=== PATIENT | female | born 1945 | race Caucasian/White ===

== ENCOUNTER 2016-07-28 18:20 | Inpatient (IN) | payer OTHER ==
[~2016-07-28] VITALS: Ht 167.6 cm; Wt 86.2 kg
[2016-07-28 20:00] VITALS: BP 138/66
[2016-07-28] MEDS ORDERED: LORAZEPAM 0.5 MG TABLET PO PRN (21:00)
[2016-07-28] MEDS ORDERED: ACETAMINOPHEN 325 MG TABLET PO PRN (21:00)
[2016-07-28] MEDS ORDERED: MAGNESIUM HYDROXIDE 30 ML UDC PO PRN (21:00)
[2016-07-28] MEDS ORDERED: MAG HYDROX/AL HYDROX/SIMETH 30 ML UDC PO PRN (21:00)
[2016-07-28] MEDS ORDERED: CITA20TA19 PO (21:24)
[2016-07-28] MEDS ORDERED: AMLO10TA2 PO (21:24)
[2016-07-29 07:51] LABS: BASOPHILS % (AUTO) 0.4 % (0.0-2.0); DIFF TOTAL % 100 %; EOSINOPHILS % (AUTO) 0.3 % (0.0-6.0); HEMATOCRIT 36 % (33-45); HEMOGLOBIN 11.9 g/dL (11.5-14.8); LYMPHOCYTES # (AUTO) 1.3 /CMM (0.8-4.8); LYMPHOCYTES % (AUTO) 15.2 % (20.0-44.0); MEAN CORPUSCULAR HEMOGLOBIN 32 PG (26.0-33.0); MEAN CORPUSCULAR HGB CONC 33 g/dl (31.0-36.0); MEAN CORPUSCULAR VOLUME 97 fL (82-100); MONOCYTES # (AUTO) 0.5 /CMM (0.1-1.30); NEUTROPHILS # (AUTO) 6.6 /CMM (1.8-8.9); NEUTROPHILS % (AUTO) 78.1 % (43.0-81.0); PLATELET COUNT (AUTO) 210 /CMM (150-450); RED BLOOD CELL COUNT(AUTO) 3.73 MIL/uL (4.0-5.2); WHITE BLOOD COUNT (AUTO) 8.5 K/uL (4.3-11.0)
[2016-07-29 08:00] VITALS: BP 151/79
[2016-07-29 08:11] LABS: CHOLESTEROL 143 mg/dL (<200); HDL CHOLESTEROL 65 mg/dL (40-60); LDL 68 mg/dL (0-99); TRIGLYCERIDES 46 mg/dL (30-150)
[2016-07-29 08:19] LABS: ALBUMIN 3.6 g/dL (3.4-5.0); BILIRUBIN,TOTAL 1.1 mg/dL (0.2-1.0); CALCIUM, SERUM 8.8 mg/dL (8.5-10.1); CREATININE 0.7 mg/dL (0.6-1.3); POTASSIUM 3.8 mmol/L (3.5-5.1)
[2016-07-29 16:00] VITALS: BP 156/73
[2016-07-29 20:00] VITALS: BP 142/77
[2016-07-29] MEDS: DIVALPROEX SODIUM 125 MG CAP.SPRINK PO SCH (20:51)
[2016-07-29] MEDS: CEFUROXIME AXETIL 250 MG TABLET PO SCH (21:14)
[2016-07-29] MEDS: QUETIAPINE FUMARATE 25 MG TABLET PO SCH (22:02)
[2016-07-29] MEDS: TEMAZEPAM 7.5 MG CAPSULE PO PRN (23:28)
[2016-07-30 07:49] VITALS: BP 129/61
[2016-07-30] MEDS: CEFUROXIME AXETIL 250 MG TABLET PO SCH ×2 (09:46→20:07)
[2016-07-30] MEDS: CITALOPRAM HYDROBROMIDE 20 MG TABLET PO SCH (09:46)
[2016-07-30] MEDS: DIVALPROEX SODIUM 125 MG CAP.SPRINK PO SCH ×2 (09:47→20:07)
[2016-07-30 16:00] VITALS: BP 127/69
[2016-07-30 20:00] VITALS: BP 147/72
[2016-07-30] MEDS: QUETIAPINE FUMARATE 25 MG TABLET PO SCH (21:09)
[2016-07-30] MEDS: TEMAZEPAM 7.5 MG CAPSULE PO PRN (22:15)
[2016-07-31] MEDS: CEFUROXIME AXETIL 250 MG TABLET PO SCH ×3 (08:30→21:31)
[2016-07-31] MEDS: DIVALPROEX SODIUM 125 MG CAP.SPRINK PO SCH ×3 (08:30→21:32)
[2016-07-31] MEDS: CITALOPRAM HYDROBROMIDE 20 MG TABLET PO SCH (08:30)
[2016-07-31 10:32] VITALS: BP 132/73
[2016-07-31 10:36] VITALS: BP 139/65
[2016-07-31 15:49] VITALS: BP 122/64
[2016-07-31 20:28] VITALS: BP 152/88
[2016-07-31] MEDS: QUETIAPINE FUMARATE 25 MG TABLET PO SCH ×2 (21:32→22:00)
[2016-08-01 08:00] VITALS: BP 113/64
[2016-08-01] MEDS: CEFUROXIME AXETIL 250 MG TABLET PO SCH ×2 (08:01→21:39)
[2016-08-01] MEDS: DIVALPROEX SODIUM 125 MG CAP.SPRINK PO SCH ×3 (08:03→16:34)
[2016-08-01 16:00] VITALS: BP 127/67
[2016-08-01 20:00] VITALS: BP 122/68
[2016-08-01] MEDS: QUETIAPINE FUMARATE 25 MG TABLET PO SCH (21:39)
[2016-08-02 08:00] VITALS: BP 144/85
[2016-08-02] MEDS: DIVALPROEX SODIUM 125 MG CAP.SPRINK PO SCH ×2 (09:37→21:17)
[2016-08-02] MEDS: CEFUROXIME AXETIL 250 MG TABLET PO SCH ×2 (09:38→21:17)
[2016-08-02 16:00] VITALS: BP 126/63
[2016-08-02 20:23] VITALS: BP 141/76
[2016-08-02] MEDS: QUETIAPINE FUMARATE 25 MG TABLET PO SCH (21:17)
[2016-08-03 08:45] VITALS: BP 122/63
[2016-08-03] MEDS: CEFUROXIME AXETIL 250 MG TABLET PO SCH ×2 (09:30→21:14)
[2016-08-03 15:56] VITALS: BP 116/78
[2016-08-03 20:46] VITALS: BP 122/63
[2016-08-03] MEDS: QUETIAPINE FUMARATE 25 MG TABLET PO SCH (21:14)
[2016-08-03] MEDS: DIVALPROEX SODIUM 125 MG CAP.SPRINK PO SCH (21:14)
[2016-08-03 22:00] VITALS: BP 122/63
[2016-08-04 08:00] VITALS: BP 143/78
[2016-08-04 16:00] VITALS: BP 118/76
== END 2016-08-04 18:20 | disposition home or self-care (01) | DRG 885 ==
LOC: GPS 18:20
PROVIDERS: ADMIT Psychiatry & Neurology Psychiatry; ATTEND Internal Medicine
DX: F29 Unspecified psychosis not due to a substance or known physiological condition (principal); N17.0 Acute kidney failure with tubular necrosis; N39.0 Urinary tract infection, site not specified; F03.91 Unspecified dementia, unspecified severity, with behavioral disturbance; F31.9 Bipolar disorder, unspecified; I10 Essential (primary) hypertension; F41.9 Anxiety disorder, unspecified; R33.9 Retention of urine, unspecified; K80.20 Calculus of gallbladder without cholecystitis without obstruction
CPT/HCPCS: 36415; 70551-TC; 80053-TC; 80061-TC; 80164-TC; 85025-TC; 86140-TC; 87081-TC; 87086-TC; 93307-TC; 93880-TC; 95819-TC; A6402